=== PATIENT | female | born 1980 | race Caucasian/White ===

== ENCOUNTER 2023-02-28 13:45 | Emergency (ER) | payer OTHER, SELFPAY ==
[2023-02-28 13:55] VITALS: BP 149/96; PULSE 98; RESP 18; TEMP 36.8; O2SAT 98; BMI 25.7
--- NOTE | 2023-02-28 14:41 | PC.NURSE ---
updated pt that ER DR will be approx 30 min d/t Dr business per DR request
--- NOTE | 2023-02-28 15:32 | PC.NURSE ---
came back from admitting another pt and found pt door open and pt has left without seeing DR BRY notified
== END 2023-02-28 15:30 | disposition left against medical advice (07) ==
PROVIDERS: Emergency Provider Emergency Medicine
DX: Z53.21 Procedure and treatment not carried out due to patient leaving prior to being seen by health care provider (principal)